=== PATIENT | female | born 1950 | race Caucasian/White ===

== ENCOUNTER → 2018-04-25 12:06 | Outpatient (CLI) | payer SELFPAY ==
[2018-04-25 12:22] LABS: BASOPHILS 0.3 % (0-2); EOSINOPHILS 0 % (0-7); HEMATOCRIT 40.3 % (36.0-48.0); HEMOGLOBIN 13.2 g/dL (12-16); IMMATURE GRANULOCYTES 0.3 % (0-5); LYMPHOCYTES 12.1 % (15-50); MCHC 32.8 g/dL (31.0-37.0); MCV 88.6 fL (80.0-100.0); NEUTROPHILS 80.3 % (40-80); PLATELET COUNT 232 10x3/uL (130-400); RBC 4.55 10x6/uL (4.00-5.40); RDW 13.6 % (11.5-14.5); WBC 7.1 10x3/uL (4.8-10.8)
[2018-04-25 13:22] LABS: ERYTHROCYTE SEDIMENTATION RATE 19 mm/hr (0-30)
== END | disposition home or self-care (01) ==
LOC: D.LABREF 12:06
PROVIDERS: Orthopaedic Surgery
DX: M25.561 Pain in right knee (principal)

== ENCOUNTER → 2018-05-12 09:04 | Outpatient (CLI) | payer OTHER | END | disposition home or self-care (01) | LOC: D.NM 05-06 08:15 | DX: M25.561 Pain in right knee (principal) ==